=== PATIENT | female | born 1985 | race Caucasian/White ===

== ENCOUNTER 2022-07-30 15:51 | Emergency (ER) | payer SELFPAY ==
[2022-07-30 15:58] VITALS: BP 175/98; PULSE 73; RESP 16; TEMP 36.7; O2SAT 95; BMI 28.8
--- NOTE | 2022-07-30 16:34 | W.ED.WOUNDLC ---
HPI - Wound/Laceration General: Chief Complaint: Wound/Laceration Stated Complaint: puncture wound on right forearm Time Seen by Provider: 07/30/22 16:14 Source: patient Mode of arrival: ambulatory Limitations: no limitations History of Present Illness: 36-year-old female presents to the ER today for a right forearm laceration. Patient reports she was on the phone and walking outside the door when her screen door swung back and the handle hit her in the right forearm. Patient reports she has a 1.5 cm laceration. She reports bleeding is well controlled. She did clean it a little bit at home. She reports there is a little bit of swelling around the laceration but there never was much bleeding. She reports no numbness or tingling. She has normal range of motion. Last tetanus shot was 7 years ago. Review of Systems General: Reports: 10 or more systems reviewed and unremarkable except in HPI and below Physical Exam Const: COMMON NORMALS: no acute distress, average body habitus, patient oriented x3, no limitations, alert and well nourished Resp: COMMON NORMALS: normal respiratory effort EFFORT & INSPECTION: Yes able to speak in complete sentences Cardio: COMMON NORMALS: regular rate and regular rhythm RATE: regular rate RHYTHM: regular rhythm Extremity: COMMON NORMALS: full ROM Neuro: COMMON NORMALS: patient oriented x3 SENSORIUM/ORIENTATION: Yes alert Psych: COMMON NORMALS: mental status grossly normal, Normal thought process present and cooperative THOUGHT PROCESS: Normal thought process present Skin: NARRATIVE SKIN EXAM: 1.5 cm laceration to the right antecubital fossa, no active bleeding. Procedures Laceration Laceration 1: Site: upper extremity (Antecubital fossa) Side (If applicable): right Size (cm): 2 Description: linear and clean Depth: simple, single layer Local Anesthetic: lidocaine 1% and with epi Amount of anesthesia used (mL): 2 Pre-repair: wound explored and irrigated extensively Skin layer closed with: other (ethilon) Size (cm): 4-0 Number of sutures: 3 Technique: simple, interrupted Course ED course: Patient presents to the ER today with a laceration to the right antecubital fossa. There is no active bleeding. Patient has normal range of motion. There is mild swelling distal to the laceration. Tdap was given 7 years ago but patient has not had one since. No numbness or tingling. Normal range of motion. Vital Signs: Vital signs: Vital Signs Temperature 98.1 F 07/30/22 15:58 Pulse Rate 73 07/30/22 15:58 Respiratory Rate 16 07/30/22 15:58 Blood Pressure 175/98 07/30/22 15:58 Pulse Oximetry 95 07/30/22 15:58 Oxygen Delivery Me thod Room Air 07/30/22 15:58 MDM - Wound/Laceration Medical Decision Making Patient's laceration was closed and she tolerated the procedure well. See procedure note. No obvious signs of infection. Patient may have nicked a vein in that area given the localized bruising and swelling distal to the laceration. No active bleeding was noted when wound was explored. Patient has normal range of motion and sensation. Wound care was discussed with patient. Recommended follow-up with PCP in 7 to 10 days for suture removal. Apply heat to reduce the swelling/tenderness in the area distal to the laceration. Tdap updated today in ED. Return to the ER with any new or worsening symptoms or signs of infection. Patient verbalized understanding and was in agreement with the treatment plan. Critical Care Time Critical Care Time: Critical Care Time: No Discharge Plan Discharge Patient Disposition: Home Clinical Impression: Laceration of forearm, right Qualifiers: Encounter type: initial encounter Qualified Code(s): S51.811A - Laceration without foreign body of right forearm, initial encounter Condition: Stable Discharge Orders: Discharge ED (Routine); Ordered 07/30/22 Ordered By: Goldie White Discharge Diet: Usual diet Discharge Activity: Resume usual activity Patient Instructions: Opioid Safety, Pain Management Activity Restrictions/Additional Instructions: Keep wound clean and dry x24 hours. Change dressing once daily. Check for any signs of infection. Follow-up with PCP in 10 days for suture removal. Return to the ER with any new or worsening symptoms. Coding Level of Care Code ED Volunteer Assistant for Annel Rice
[2022-07-30] MEDS: tetanus-dipt-pertussis 0.5 mL SDV IM (17:03)
== END 2022-07-30 17:09 | disposition home or self-care (01) ==
PROVIDERS: Emergency Provider Physician Assistant
DX: S51.811A Laceration without foreign body of right forearm, initial encounter (principal); W20.8XXA Other cause of strike by thrown, projected or falling object, initial encounter; Y93.01 Activity, walking, marching and hiking; Y92.009 Unspecified place in unspecified non-institutional (private) residence as the place of occurrence of the external cause; Z23 Encounter for immunization
CPT/HCPCS: 12001; 90471; 90715; 99283

== ENCOUNTER 2024-07-11 09:38 | Outpatient (CLI) | payer OTHER, SELFPAY ==
--- NOTE | 2024-07-11 09:45 | MM_ITS ---
WS: [id number] BILATERAL SCREENING DIGITAL TOMOSYNTHESIS MAMMOGRAM WITH CAD HISTORY: SCREENING COMPARISON: None available. Bilateral CC and MLO views with tomosynthesis and synthetic mammography submitted. Computer aided detection analyzed. Breast composition: The breasts are heterogeneously dense, which may obscure small masses. No suspicious masses, microcalcifications or architectural distortion. Benign coarse calcification 12:00 RIGHT breast. MM/MM scr tomosynthesis [id number] IMPRESSION: BI-RADS: 2 - Benign FOLLOW UP: 1 Year Follow-up
== END 2024-07-11 09:39 | disposition home or self-care (01) ==
PROVIDERS: PCP Nurse Practitioner Family; Visit Provider Nurse Practitioner Family
DX: Z12.31 Encounter for screening mammogram for malignant neoplasm of breast (principal); R92.333 Mammographic heterogeneous density, bilateral breasts; R92.1 Mammographic calcification found on diagnostic imaging of breast
CPT/HCPCS: 77063; 77067